=== PATIENT | female | born 1955 | race Caucasian/White ===

== ENCOUNTER 2016-09-03 15:28 | Inpatient (IN) | payer MEDICARE, MEDICAID ==
[~2016-09-03 15:28] MED LIST: ASPIR 8181 MG PO; AXERT6.25 MG; BACLOFEN20 MG PO; CALCIUM 600 W/V1 TAB PO; CYMBALTA60 MG PO; DETROL LA4 MG PO; HUMALOG100 U/ML SQ; INHALER; LANTUS100 U/ML SC; LEVOTHYROXINE125 MCG PO; MULTIVITAMIN1 TAB PO; NAPROXEN375 MG PO; NEURONTIN600 MG PO; NORVASC10 MG PO; PRILOSEC OTC20 MG PO; PROBIOTIC1 EACH PO; TRAMADOL HCL50 MG PO; VITAMIN C PO; XANAX0.25 MG
[2016-09-03] MEDS ORDERED: ACYCLOVIR SOD1000 MG IV (18:48)
[2016-09-03] MEDS ORDERED: ZOSYN IV (18:50)
[2016-09-03] MEDS ORDERED: VANCOMYCIN HCL500 MG IV (18:51)
[2016-09-03] MEDS ORDERED: ELIQUIS5 M1 GT (18:52)
[2016-09-03] MEDS ORDERED: ELIQUIS5 M1 PEG (18:55)
[2016-09-03] MEDS ORDERED: ASPIRIN325 M3 PEG (18:55)
[2016-09-03] MEDS ORDERED: LIPITOR80 M1 NG (18:56)
[2016-09-03] MEDS ORDERED: LIPITOR80 M1 PEG (18:56)
[2016-09-03] MEDS ORDERED: BACLOFEN20 M1 PEG (18:57)
[2016-09-03] MEDS ORDERED: NORVASC5 M2 PEG (18:58)
[2016-09-03] MEDS ORDERED: SENNA LAXATIVE PO (18:58)
[2016-09-03] MEDS ORDERED: MIRALAX17 G2 PEG (18:59)
[2016-09-03] MEDS ORDERED: OXYBUTYNIN CHLOR5 M2 PEG (19:02)
[2016-09-03] MEDS ORDERED: KEPPRA100 MG/1 M PEG (19:03)
[2016-09-03] MEDS ORDERED: TRICOR145 M2 PEG (19:03)
[2016-09-03] MEDS ORDERED: SYNTHROID88 MC1 PEG (19:05)
[2016-09-03] MEDS ORDERED: PRINIVIL20 M1 PO (19:05)
[2016-09-03] MEDS ORDERED: THERA-M1 EAC1 PEG (19:06)
[2016-09-03] MEDS ORDERED: VENLAFAXINE HCL75 M3 PEG (19:07)
[2016-09-03] MEDS ORDERED: BISCOLAX10 MG PR (19:08)
[2016-09-03] MEDS ORDERED: LEVEMIR FL100 UNIT/2 SC (19:12)
[2016-09-03] MEDS ORDERED: NOVOLOG FL100 UNIT/2 SC (19:12)
[2016-09-03] MEDS ORDERED: SANTYL30 G1 TOP (19:13)
[2016-09-03] MEDS ORDERED: CALAMINE TOP (19:14)
[2016-09-03] MEDS ORDERED: HYDRALAZINE HCL25 M1 PEG (19:15)
[2016-09-03] MEDS ORDERED: LABETALOL H5 MG/1 M1 IV (19:18)
[2016-09-03] MEDS ORDERED: ALBUTEROL2.5 MG/0.1 IH (19:19)
[2016-09-03] MEDS ORDERED: MILK OF MAGNESIA PEG (19:20)
[2016-09-03] MEDS ORDERED: MAPAP PEG (19:22)
[2016-09-03] MEDS ORDERED: MAALOX MAXIMUM355 M1 PEG (19:23)
[2016-09-03] MEDS ORDERED: OXYCODONE H5 MG/5 M2 PEG (19:24)
[2016-09-04 00:05] LABS: CREATININE 0.75 mg/dl (0.50-1.10); GLUCOSE 279 mg/dL (70-110); eGFR VALUE FOR BLACK >90 mL/Min
[2016-09-04 06:00] LABS: ALB/GLOB RATIO 0.8 (0.8-2.0); ALKALINE PHOSPHATASE 50 U/L (33-138); ALT/SGPT 19 U/L (12-78); ANION GAP 11 mmol/L (0-20); AST/SGOT 25 U/L (10-40); BLOOD UREA NITROGEN 25 mg/dl (6-24); CALCIUM 8.7 mg/dl (8.5-10.5); CARBON DIOXIDE-VENOUS 29 mmol/L (22-32); CHLORIDE 103 mmol/l (96-110); CREATININE 1.04 mg/dl (0.50-1.10); GLUCOSE 328 mg/dL (70-110); POTASSIUM 3.2 mmol/L (3.7-5.1); SODIUM 140 mmol/L (135-145); eGFR VALUE FOR BLACK 67 mL/Min
[2016-09-04 06:15] LABS: BASO % 0.1 % (0-2); EOS % 0.2 % (0-7); HCT-HEMATOCRIT 26.3 % (34.0-49.0); HGB-HEMOGLOBIN 8.6 gm/dl (12.0-15.5); IMMATURE GRANULOCYTES ABSOLUTE 0.04 tho/cmm (0-0.03); IMMATURE GRANULOCYTES PERCENT 0.4 % (0-0.3); LYMPH % 9.4 % (20-45); MCH (MEAN CORPUSCULAR HGB) 28.6 pg (28.0-32.0); MCHC MEAN CORPUSCULAR HGB CONC 32.7 % (32.0-36.0); MCV (MEAN CELL VOLUME) 87.4 fl (82.0-96.0); MEAN PLATELET VOLUME 10.9 cmc (9.4-12.4); MONO % 3.4 % (0-12); MONOCYTE ABSOLUTE COUNT 0.3 tho/cmm (0.0-1.2); NEUTROPHIL ABSOLUTE COUNT 8.8 tho/cmm (1.6-8.0); NEUTROPHIL-AUTOMATED 8.8 tho/cmm (1.6-8.0); NEUTROPHILS % 86.5 % (40-80); RED BLOOD COUNT 3.01 mil/cmm (4.00-5.20); WHITE BLOOD COUNT 10.1 tho/cmm (4.0-10.0)
[2016-09-04 09:26] LABS: PLATELET COUNT 120 tho/cmm (150-450)
[2016-09-04] MEDS ORDERED: ACETAMINOP160 MG/10 PO (15:50)
[2016-09-04] MEDS ORDERED: IPRAT-ALBUT 0.5-3 ML INH (15:52)
[2016-09-04] MEDS ORDERED: SENNA-S TABLET1 EAC3 PEG (15:58)
[2016-09-04] MEDS ORDERED: ADRENALIN1 MG/1 M3 ITR (15:59)
[2016-09-04] MEDS ORDERED: FLUOCINONIDE15 GM TP (16:01)
[2016-09-04] MEDS ORDERED: LIDOCAINE 2% ITR (16:08)
[2016-09-04] MEDS ORDERED: CALMOSEPTINE OI71 G1 TP (16:10)
[2016-09-04] MEDS ORDERED: NYSTATIN15 G1 TP (16:11)
[2016-09-05 05:49] LABS: BASO % 0.1 % (0-2); EOS % 2.1 % (0-7); EOSINOPHIL ABSOLUTE COUNT 0.1 tho/cmm (0.0-0.7); HCT-HEMATOCRIT 24.4 % (34.0-49.0); IMMATURE GRANULOCYTES ABSOLUTE 0.03 tho/cmm (0-0.03); IMMATURE GRANULOCYTES PERCENT 0.4 % (0-0.3); LYMPH % 9.1 % (20-45); LYMPH ABSOLUTE COUNT 0.6 tho/cmm (0.8-4.5); MCH (MEAN CORPUSCULAR HGB) 28.5 pg (28.0-32.0); MCHC MEAN CORPUSCULAR HGB CONC 32.8 % (32.0-36.0); MCV (MEAN CELL VOLUME) 86.8 fl (82.0-96.0); MEAN PLATELET VOLUME 10.4 cmc (9.4-12.4); MONOCYTE ABSOLUTE COUNT 0.3 tho/cmm (0.0-1.2); NEUTROPHIL ABSOLUTE COUNT 5.8 tho/cmm (1.6-8.0); NEUTROPHIL-AUTOMATED 5.8 tho/cmm (1.6-8.0); NEUTROPHILS % 84.3 % (40-80); RED BLOOD COUNT 2.81 mil/cmm (4.00-5.20); RED CELL DISTRIBUTION WIDTH 17.3 % (12.4-16.4); WHITE BLOOD COUNT 6.8 tho/cmm (4.0-10.0)
[2016-09-05 06:17] LABS: ALB/GLOB RATIO 0.9 (0.8-2.0); ALBUMIN 2.9 g/dl (3.5-5.0); ALKALINE PHOSPHATASE 67 U/L (33-138); ALT/SGPT 14 U/L (12-78); ANION GAP 10 mmol/L (0-20); AST/SGOT 20 U/L (10-40); BILIRUBIN,TOTAL 0.5 mg/dl (0-1.5); BLOOD UREA NITROGEN 35 mg/dl (6-24); CALCIUM 8.6 mg/dl (8.5-10.5); CARBON DIOXIDE-VENOUS 28 mmol/L (22-32); CHLORIDE 104 mmol/l (96-110); CREATININE 1.14 mg/dl (0.50-1.10); GLUCOSE 241 mg/dL (70-110); POTASSIUM 3.3 mmol/L (3.7-5.1); SODIUM 139 mmol/L (135-145); eGFR VALUE FOR BLACK 60 mL/Min
[2016-09-05 07:15] LABS: PLATELET COUNT 82 tho/cmm (150-450)
[2016-09-05 13:10] LABS: BASO % 0.1 % (0-2); EOS % 2.3 % (0-7); EOSINOPHIL ABSOLUTE COUNT 0.2 tho/cmm (0.0-0.7); HCT-HEMATOCRIT 25.7 % (34.0-49.0); HGB-HEMOGLOBIN 8.3 gm/dl (12.0-15.5); IMMATURE GRANULOCYTES ABSOLUTE 0.02 tho/cmm (0-0.03); IMMATURE GRANULOCYTES PERCENT 0.3 % (0-0.3); LYMPH % 12.2 % (20-45); LYMPH ABSOLUTE COUNT 0.9 tho/cmm (0.8-4.5); MCH (MEAN CORPUSCULAR HGB) 27.9 pg (28.0-32.0); MCHC MEAN CORPUSCULAR HGB CONC 32.3 % (32.0-36.0); MCV (MEAN CELL VOLUME) 86.2 fl (82.0-96.0); MEAN PLATELET VOLUME 10.3 cmc (9.4-12.4); MONO % 3.8 % (0-12); MONOCYTE ABSOLUTE COUNT 0.3 tho/cmm (0.0-1.2); NEUTROPHIL ABSOLUTE COUNT 6.1 tho/cmm (1.6-8.0); NEUTROPHIL-AUTOMATED 6.1 tho/cmm (1.6-8.0); NEUTROPHILS % 81.3 % (40-80); PLATELET COUNT 93 tho/cmm (150-450); RED BLOOD COUNT 2.98 mil/cmm (4.00-5.20); RED CELL DISTRIBUTION WIDTH 17.1 % (12.4-16.4); WHITE BLOOD COUNT 7.4 tho/cmm (4.0-10.0)
[2016-09-05 13:27] LABS: ANION GAP 13 mmol/L (0-20); BLOOD UREA NITROGEN 31 mg/dl (6-24); CALCIUM 8.8 mg/dl (8.5-10.5); CARBON DIOXIDE-VENOUS 28 mmol/L (22-32); CHLORIDE 104 mmol/l (96-110); CREATININE 1.04 mg/dl (0.50-1.10); GLUCOSE 264 mg/dL (70-110); POTASSIUM 3.7 mmol/L (3.7-5.1); SODIUM 141 mmol/L (135-145); eGFR VALUE FOR BLACK 67 mL/Min
[2016-09-05 17:32] LABS: PLATELET COUNT 95 tho/cmm (150-450)
[2016-09-06 04:27] LABS: ANION GAP 10 mmol/L (0-20); BLOOD UREA NITROGEN 25 mg/dl (6-24); CALCIUM 8.5 mg/dl (8.5-10.5); CARBON DIOXIDE-VENOUS 26 mmol/L (22-32); CHLORIDE 107 mmol/l (96-110); CREATININE 0.77 mg/dl (0.50-1.10); GLUCOSE 304 mg/dL (70-110); POTASSIUM 3.8 mmol/L (3.7-5.1); SODIUM 139 mmol/L (135-145); eGFR VALUE FOR BLACK >90 mL/Min
[2016-09-06 04:33] LABS: BASO % 0.1 % (0-2); EOS % 2.4 % (0-7); EOSINOPHIL ABSOLUTE COUNT 0.2 tho/cmm (0.0-0.7); HCT-HEMATOCRIT 28.7 % (34.0-49.0); HGB-HEMOGLOBIN 9.4 gm/dl (12.0-15.5); IMMATURE GRANULOCYTES ABSOLUTE 0.04 tho/cmm (0-0.03); IMMATURE GRANULOCYTES PERCENT 0.6 % (0-0.3); LYMPH % 8.2 % (20-45); LYMPH ABSOLUTE COUNT 0.6 tho/cmm (0.8-4.5); MCH (MEAN CORPUSCULAR HGB) 28.7 pg (28.0-32.0); MCHC MEAN CORPUSCULAR HGB CONC 32.8 % (32.0-36.0); MCV (MEAN CELL VOLUME) 87.8 fl (82.0-96.0); MONO % 3.3 % (0-12); MONOCYTE ABSOLUTE COUNT 0.2 tho/cmm (0.0-1.2); NEUTROPHIL ABSOLUTE COUNT 5.8 tho/cmm (1.6-8.0); NEUTROPHIL-AUTOMATED 5.8 tho/cmm (1.6-8.0); NEUTROPHILS % 85.4 % (40-80); PLATELET COUNT 102 tho/cmm (150-450); RED BLOOD COUNT 3.27 mil/cmm (4.00-5.20); RED CELL DISTRIBUTION WIDTH 16.4 % (12.4-16.4); WHITE BLOOD COUNT 6.7 tho/cmm (4.0-10.0)
[2016-09-06] MEDS ORDERED: SULFAMYLON SOL250 M1 TOP (09:38)
[2016-09-06] MEDS ORDERED: ACYCLOVIR SOD1000 MG IV (09:48)
[2016-09-06] MEDS ORDERED: LOVENOX40 MG/0.1 SC (09:50)
[2016-09-06] MEDS ORDERED: ACTIVASE50 MG IV (09:51)
[2016-09-06] MEDS ORDERED: HYDROCODON-ACE1 EA16 PEG (09:58)
[2016-09-06] MEDS ORDERED: [UNRECOGNIZED DRUG - OTHER] (10:45)
[2016-09-24] MEDS ORDERED: NOVOLOG FL100 UNIT/2 SC (12:13)
[2016-09-24] MEDS ORDERED: XANAX0.25 M1 PEG (12:16)
[2016-09-24] MEDS ORDERED: AMANTADINE100 MG PEG (12:16)
[2016-09-24] MEDS ORDERED: MEDS (14:47)
== END 2016-09-06 13:48 | DRG 981 ==
LOC: BURN 15:28 → ORW 17:30 → BURN 18:24
PROVIDERS: Family Medicine; Internal Medicine; Surgery; ADMIT Surgery
PROC: 0QB10ZZ Excision of Sacrum, Open Approach (ICD-10-PCS; principal; 2016-09-03)
PROC: 0QTS0ZZ Resection of Coccyx, Open Approach (ICD-10-PCS; principal; 2016-09-03)
PROC: 5A1945Z Respiratory Ventilation, 24-96 Consecutive Hours (ICD-10-PCS; principal; 2016-09-03)
PROC: 0QB10ZX Excision of Sacrum, Open Approach, Diagnostic (ICD-10-PCS; principal; 2016-09-03)
DX: L89.154 Pressure ulcer of sacral region, stage 4 (principal); J96.21 Acute and chronic respiratory failure with hypoxia; G93.49 Other encephalopathy; Z93.0 Tracheostomy status; G82.20 Paraplegia, unspecified; D69.6 Thrombocytopenia, unspecified; M46.28 Osteomyelitis of vertebra, sacral and sacrococcygeal region; I82.512 Chronic embolism and thrombosis of left femoral vein; N39.0 Urinary tract infection, site not specified; L02.219 Cutaneous abscess of trunk, unspecified; Q85.01 Neurofibromatosis, type 1; G40.909 Epilepsy, unspecified, not intractable, without status epilepticus; E11.9 Type 2 diabetes mellitus without complications; I10 Essential (primary) hypertension; B96.5 Pseudomonas (aeruginosa) (mallei) (pseudomallei) as the cause of diseases classified elsewhere; E66.9 Obesity, unspecified; F32.9 Major depressive disorder, single episode, unspecified; D64.9 Anemia, unspecified; E78.5 Hyperlipidemia, unspecified; F41.9 Anxiety disorder, unspecified; Z93.3 Colostomy status; Z88.8 Allergy status to other drugs, medicaments and biological substances; Z99.3 Dependence on wheelchair; Z93.1 Gastrostomy status; Z88.5 Allergy status to narcotic agent
CPT/HCPCS: J0133; J0360; J1650; J1815; J2543; J3010; J3370; J7050; J7999; P9016; P9045

== ENCOUNTER 2016-09-26 08:55 | Inpatient (IN) | payer MEDICARE, MEDICAID ==
[~2016-09-26 08:55] MED LIST changes: +ACETAMINOP160 MG/10 PO; +ACTIVASE50 MG IV; +ACYCLOVIR SOD1000 MG IV; +ADRENALIN1 MG/1 M3 ITR; +ALBUTEROL2.5 MG/0.1 IH; +AMANTADINE100 MG PEG; +ASPIRIN325 M3 PEG; +BACLOFEN20 M1 PEG; +BISCOLAX10 MG PR; +CALAMINE TOP; +CALMOSEPTINE OI71 G1 TP; +ELIQUIS5 M1 GT; +ELIQUIS5 M1 PEG; +FLUOCINONIDE15 GM TP; +HYDRALAZINE HCL25 M1 PEG; +HYDROCODON-ACE1 EA16 PEG; +IPRAT-ALBUT 0.5-3 ML INH; +KEPPRA100 MG/1 M PEG; +LABETALOL H5 MG/1 M1 IV; +LEVEMIR FL100 UNIT/2 SC; +LIDOCAINE 2% ITR; +LIPITOR80 M1 NG; +LIPITOR80 M1 PEG; +LOVENOX40 MG/0.1 SC; +MAALOX MAXIMUM355 M1 PEG; +MAPAP PEG; +MEDS; +MILK OF MAGNESIA PEG; +MIRALAX17 G2 PEG; +NORVASC5 M2 PEG; +NOVOLOG FL100 UNIT/2 SC; +NYSTATIN15 G1 TP; +OXYBUTYNIN CHLOR5 M2 PEG; +OXYCODONE H5 MG/5 M2 PEG; +PRINIVIL20 M1 PO; +SANTYL30 G1 TOP; +SENNA LAXATIVE PO; +SENNA-S TABLET1 EAC3 PEG; +SULFAMYLON SOL250 M1 TOP; +SYNTHROID88 MC1 PEG; +THERA-M1 EAC1 PEG; +TRICOR145 M2 PEG; +VANCOMYCIN HCL500 MG IV; +VENLAFAXINE HCL75 M3 PEG; +XANAX0.25 M1 PEG; +ZOSYN IV; +[UNRECOGNIZED DRUG - OTHER]
[2016-09-26 09:53] LABS: BASO % 0.3 % (0-2); EOSINOPHIL ABSOLUTE COUNT 0.3 tho/cmm (0.0-0.7); HCT-HEMATOCRIT 32.8 % (34.0-49.0); HGB-HEMOGLOBIN 10.8 gm/dl (12.0-15.5); IMMATURE GRANULOCYTES ABSOLUTE 0.13 tho/cmm (0-0.03); IMMATURE GRANULOCYTES PERCENT 1.4 % (0-0.3); LYMPH % 15.2 % (20-45); LYMPH ABSOLUTE COUNT 1.4 tho/cmm (0.8-4.5); MCH (MEAN CORPUSCULAR HGB) 29.8 pg (28.0-32.0); MCHC MEAN CORPUSCULAR HGB CONC 32.9 % (32.0-36.0); MCV (MEAN CELL VOLUME) 90.4 fl (82.0-96.0); MEAN PLATELET VOLUME 10.8 cmc (9.4-12.4); MONO % 7.8 % (0-12); MONOCYTE ABSOLUTE COUNT 0.7 tho/cmm (0.0-1.2); NEUTROPHIL ABSOLUTE COUNT 6.7 tho/cmm (1.6-8.0); NEUTROPHIL-AUTOMATED 6.7 tho/cmm (1.6-8.0); NEUTROPHILS % 72.3 % (40-80); PLATELET COUNT 313 tho/cmm (150-450); RED BLOOD COUNT 3.63 mil/cmm (4.00-5.20); RED CELL DISTRIBUTION WIDTH 18.7 % (12.4-16.4); WHITE BLOOD COUNT 9.3 tho/cmm (4.0-10.0)
[2016-09-26] MEDS ORDERED: NYSTATIN15 G1 TP (10:14)
[2016-09-27 07:11] LABS: BASO % 0.2 % (0-2); EOS % 2.8 % (0-7); EOSINOPHIL ABSOLUTE COUNT 0.2 tho/cmm (0.0-0.7); IMMATURE GRANULOCYTES ABSOLUTE 0.05 tho/cmm (0-0.03); IMMATURE GRANULOCYTES PERCENT 0.9 % (0-0.3); LYMPH % 13.1 % (20-45); LYMPH ABSOLUTE COUNT 0.7 tho/cmm (0.8-4.5); MCV (MEAN CELL VOLUME) 91.7 fl (82.0-96.0); MEAN PLATELET VOLUME 10.8 cmc (9.4-12.4); MONO % 4.9 % (0-12); MONOCYTE ABSOLUTE COUNT 0.3 tho/cmm (0.0-1.2); NEUTROPHIL ABSOLUTE COUNT 4.1 tho/cmm (1.6-8.0); NEUTROPHIL-AUTOMATED 4.1 tho/cmm (1.6-8.0); NEUTROPHILS % 78.1 % (40-80); PLATELET COUNT 216 tho/cmm (150-450); RED BLOOD COUNT 2.54 mil/cmm (4.00-5.20); RED CELL DISTRIBUTION WIDTH 18.8 % (12.4-16.4); WHITE BLOOD COUNT 5.3 tho/cmm (4.0-10.0)
[2016-09-27 07:14] LABS: HCT-HEMATOCRIT 23.3 % (34.0-49.0); HGB-HEMOGLOBIN 7.5 gm/dl (12.0-15.5); MCH (MEAN CORPUSCULAR HGB) 29.5 pg (28.0-32.0); MCHC MEAN CORPUSCULAR HGB CONC 32.2 % (32.0-36.0)
[2016-09-27 07:23] LABS: ALB/GLOB RATIO 0.7 (0.8-2.0); ALBUMIN 2.6 g/dl (3.5-5.0); ALKALINE PHOSPHATASE 59 U/L (33-138); ALT/SGPT 18 U/L (12-78); ANION GAP 16 mmol/L (0-20); AST/SGOT 21 U/L (10-40); BILIRUBIN,TOTAL 0.3 mg/dl (0-1.5); BLOOD UREA NITROGEN 71 mg/dl (6-24); CALCIUM 8.3 mg/dl (8.5-10.5); CARBON DIOXIDE-VENOUS 23 mmol/L (22-32); CHLORIDE 101 mmol/l (96-110); CREATININE 1.27 mg/dl (0.50-1.10); GLUCOSE 288 mg/dL (70-110); PHOSPHOROUS 3.1 mg/dl (2.5-4.9); POTASSIUM 4.8 mmol/L (3.7-5.1); SODIUM 135 mmol/L (135-145); eGFR VALUE FOR BLACK 53 mL/Min
[2016-09-27 08:29] LABS: URINE BILIRUBIN NEGATIVE (NEG); URINE BLOOD SMALL (NEG); URINE GLUCOSE (UA) LARGE (NEG); URINE KETONE NEGATIVE (NEG); URINE LEUKOCYTE ESTERASE POSITIVE (NEG); URINE NITRITE NEGATIVE (NEG); URINE PROTEIN MODERATE (NEG); URINE SPECIFIC GRAVITY 1.005 (1.003-1.030)
[2016-09-27 08:31] LABS: URINE APPEARANCE HAZY; URINE COLOR PALE YELLOW
[2016-09-27 09:04] LABS: URINE BACTERIA 2+; URINE EPITHELIAL CELLS 0-2 /[HPF] (0-10); URINE RBC 0-2 /[HPF] (0-5)
[2016-09-27 12:00] LABS: BASO % 0.4 % (0-2); EOS % 3.4 % (0-7); EOSINOPHIL ABSOLUTE COUNT 0.2 tho/cmm (0.0-0.7); IMMATURE GRANULOCYTES ABSOLUTE 0.04 tho/cmm (0-0.03); IMMATURE GRANULOCYTES PERCENT 0.7 % (0-0.3); LYMPH % 14.2 % (20-45); LYMPH ABSOLUTE COUNT 0.8 tho/cmm (0.8-4.5); MCV (MEAN CELL VOLUME) 91.6 fl (82.0-96.0); MEAN PLATELET VOLUME 10.7 cmc (9.4-12.4); MONO % 9.7 % (0-12); MONOCYTE ABSOLUTE COUNT 0.5 tho/cmm (0.0-1.2); NEUTROPHIL ABSOLUTE COUNT 3.8 tho/cmm (1.6-8.0); NEUTROPHIL-AUTOMATED 3.8 tho/cmm (1.6-8.0); NEUTROPHILS % 71.6 % (40-80); PLATELET COUNT 210 tho/cmm (150-450); RED BLOOD COUNT 3.22 mil/cmm (4.00-5.20); RED CELL DISTRIBUTION WIDTH 17.7 % (12.4-16.4); WHITE BLOOD COUNT 5.4 tho/cmm (4.0-10.0)
[2016-09-27 12:02] LABS: HCT-HEMATOCRIT 29.5 % (34.0-49.0); HGB-HEMOGLOBIN 9.6 gm/dl (12.0-15.5); MCH (MEAN CORPUSCULAR HGB) 29.8 pg (28.0-32.0); MCHC MEAN CORPUSCULAR HGB CONC 32.5 % (32.0-36.0)
[2016-09-27 12:34] LABS: ANION GAP 13 mmol/L (0-20); BLOOD UREA NITROGEN 70 mg/dl (6-24); CALCIUM 8.9 mg/dl (8.5-10.5); CARBON DIOXIDE-VENOUS 28 mmol/L (22-32); CHLORIDE 101 mmol/l (96-110); GLUCOSE 246 mg/dL (70-110); POTASSIUM 4.7 mmol/L (3.7-5.1); SODIUM 137 mmol/L (135-145); eGFR VALUE FOR BLACK 51 mL/Min
[2016-09-28 10:14] LABS: BASO % 0.3 % (0-2); EOSINOPHIL ABSOLUTE COUNT 0.3 tho/cmm (0.0-0.7); HGB-HEMOGLOBIN 9.9 gm/dl (12.0-15.5); IMMATURE GRANULOCYTES ABSOLUTE 0.02 tho/cmm (0-0.03); IMMATURE GRANULOCYTES PERCENT 0.3 % (0-0.3); LYMPH % 11.2 % (20-45); LYMPH ABSOLUTE COUNT 0.7 tho/cmm (0.8-4.5); MCH (MEAN CORPUSCULAR HGB) 29.9 pg (28.0-32.0); MCV (MEAN CELL VOLUME) 90.6 fl (82.0-96.0); MEAN PLATELET VOLUME 10.6 cmc (9.4-12.4); MONO % 7.5 % (0-12); MONOCYTE ABSOLUTE COUNT 0.5 tho/cmm (0.0-1.2); NEUTROPHIL ABSOLUTE COUNT 4.8 tho/cmm (1.6-8.0); NEUTROPHIL-AUTOMATED 4.8 tho/cmm (1.6-8.0); NEUTROPHILS % 76.7 % (40-80); PLATELET COUNT 229 tho/cmm (150-450); RED BLOOD COUNT 3.31 mil/cmm (4.00-5.20); RED CELL DISTRIBUTION WIDTH 17.1 % (12.4-16.4); WHITE BLOOD COUNT 6.3 tho/cmm (4.0-10.0)
[2016-09-28 10:21] LABS: PROTHROMBIN TIME 11.4 SECONDS (9.0-13.6)
[2016-09-28 10:33] LABS: ALB/GLOB RATIO 0.7 (0.8-2.0); ALKALINE PHOSPHATASE 84 U/L (33-138); ALT/SGPT 23 U/L (12-78); ANION GAP 12 mmol/L (0-20); AST/SGOT 20 U/L (10-40); BILIRUBIN,TOTAL 0.3 mg/dl (0-1.5); BLOOD UREA NITROGEN 43 mg/dl (6-24); C-REACTIVE PROTEIN 2.7 mg/dl (0-0.9); CALCIUM 9.3 mg/dl (8.5-10.5); CARBON DIOXIDE-VENOUS 27 mmol/L (22-32); CHLORIDE 103 mmol/l (96-110); CREATININE 1.09 mg/dl (0.50-1.10); GLUCOSE 250 mg/dL (70-110); POTASSIUM 4.4 mmol/L (3.7-5.1); SODIUM 138 mmol/L (135-145); eGFR VALUE FOR BLACK 63 mL/Min
[2016-09-29 04:58] LABS: BASO % 0.3 % (0-2); EOS % 2.8 % (0-7); EOSINOPHIL ABSOLUTE COUNT 0.2 tho/cmm (0.0-0.7); HCT-HEMATOCRIT 32.9 % (34.0-49.0); HGB-HEMOGLOBIN 10.8 gm/dl (12.0-15.5); IMMATURE GRANULOCYTES ABSOLUTE 0.08 tho/cmm (0-0.03); LYMPH % 12.3 % (20-45); MCH (MEAN CORPUSCULAR HGB) 29.6 pg (28.0-32.0); MCHC MEAN CORPUSCULAR HGB CONC 32.8 % (32.0-36.0); MCV (MEAN CELL VOLUME) 90.1 fl (82.0-96.0); MONO % 5.6 % (0-12); MONOCYTE ABSOLUTE COUNT 0.4 tho/cmm (0.0-1.2); NEUTROPHIL ABSOLUTE COUNT 6.2 tho/cmm (1.6-8.0); NEUTROPHIL-AUTOMATED 6.2 tho/cmm (1.6-8.0); PLATELET COUNT 277 tho/cmm (150-450); RED BLOOD COUNT 3.65 mil/cmm (4.00-5.20); RED CELL DISTRIBUTION WIDTH 16.9 % (12.4-16.4); WHITE BLOOD COUNT 7.9 tho/cmm (4.0-10.0)
[2016-09-29 08:30] LABS: URINE BILIRUBIN NEGATIVE (NEG); URINE BLOOD NEGATIVE (NEG); URINE GLUCOSE (UA) LARGE (NEG); URINE KETONE NEGATIVE (NEG); URINE LEUKOCYTE ESTERASE POSITIVE (NEG); URINE NITRITE NEGATIVE (NEG); URINE PROTEIN MODERATE (NEG); URINE SPECIFIC GRAVITY 1.005 (1.003-1.030)
[2016-09-29 08:31] LABS: URINE APPEARANCE CLEAR; URINE COLOR YELLOW
[2016-09-29 08:39] LABS: URINE EPITHELIAL CELLS 0 /[HPF] (0-10); URINE RBC 0 /[HPF] (0-5)
[2016-09-29 09:05] LABS: PROCALCITONIN 0.23 ng/ml (0.05-0.09)
[2016-09-29 10:38] LABS: PH 7.42 Units (7.35-7.45)
[2016-09-29 10:39] LABS: ABG CO2 ARTERIAL 25 mmol/L (21-27); ARTERIAL BLD GAS O2 SATURATION 96 % (95-98); ARTERIAL BLOOD GAS PCO2 37 mmHg (32-45); ARTERIAL PO2 72 mmHg (70-100); BICARBONATE 24 mmol/L (21-28); BLOOD GAS BASE EXCESS 0 mM/L (-/+3)
[2016-09-29 14:04] LABS: ANION GAP 18 mmol/L (0-20); BLOOD UREA NITROGEN 30 mg/dl (6-24); CARBON DIOXIDE-VENOUS 21 mmol/L (22-32); CHLORIDE 100 mmol/l (96-110); CREATININE 0.83 mg/dl (0.50-1.10); GLUCOSE 181 mg/dL (70-110); POTASSIUM 4.5 mmol/L (3.7-5.1); SODIUM 134 mmol/L (135-145); eGFR VALUE FOR BLACK 88 mL/Min
[2016-09-30 06:15] LABS: BASO % 0.2 % (0-2); EOS % 1.7 % (0-7); EOSINOPHIL ABSOLUTE COUNT 0.1 tho/cmm (0.0-0.7); HCT-HEMATOCRIT 29.1 % (34.0-49.0); HGB-HEMOGLOBIN 9.6 gm/dl (12.0-15.5); IMMATURE GRANULOCYTES PERCENT 1.2 % (0-0.3); LYMPH % 13.5 % (20-45); LYMPH ABSOLUTE COUNT 1.1 tho/cmm (0.8-4.5); MCH (MEAN CORPUSCULAR HGB) 29.7 pg (28.0-32.0); MCV (MEAN CELL VOLUME) 90.1 fl (82.0-96.0); MEAN PLATELET VOLUME 10.9 cmc (9.4-12.4); MONO % 10.4 % (0-12); MONOCYTE ABSOLUTE COUNT 0.9 tho/cmm (0.0-1.2); PLATELET COUNT 274 tho/cmm (150-450); RED BLOOD COUNT 3.23 mil/cmm (4.00-5.20); RED CELL DISTRIBUTION WIDTH 17.1 % (12.4-16.4); WHITE BLOOD COUNT 8.3 tho/cmm (4.0-10.0)
[2016-09-30 06:21] LABS: ANION GAP 15 mmol/L (0-20); BLOOD UREA NITROGEN 37 mg/dl (6-24); CALCIUM 8.9 mg/dl (8.5-10.5); CARBON DIOXIDE-VENOUS 24 mmol/L (22-32); CHLORIDE 98 mmol/l (96-110); CREATININE 1.09 mg/dl (0.50-1.10); POTASSIUM 4.2 mmol/L (3.7-5.1); SODIUM 133 mmol/L (135-145); eGFR VALUE FOR BLACK 63 mL/Min
[2016-09-30 06:24] LABS: C-REACTIVE PROTEIN 1.3 mg/dl (0-0.9); GLUCOSE 305 mg/dL (70-110)
[2016-10-01 05:22] LABS: BASO % 0.2 % (0-2); EOS % 1.4 % (0-7); EOSINOPHIL ABSOLUTE COUNT 0.1 tho/cmm (0.0-0.7); HCT-HEMATOCRIT 28.9 % (34.0-49.0); HGB-HEMOGLOBIN 9.4 gm/dl (12.0-15.5); IMMATURE GRANULOCYTES ABSOLUTE 0.07 tho/cmm (0-0.03); IMMATURE GRANULOCYTES PERCENT 0.8 % (0-0.3); LYMPH ABSOLUTE COUNT 1.3 tho/cmm (0.8-4.5); MCH (MEAN CORPUSCULAR HGB) 29.4 pg (28.0-32.0); MCHC MEAN CORPUSCULAR HGB CONC 32.5 % (32.0-36.0); MCV (MEAN CELL VOLUME) 90.3 fl (82.0-96.0); MEAN PLATELET VOLUME 10.8 cmc (9.4-12.4); MONO % 6.9 % (0-12); MONOCYTE ABSOLUTE COUNT 0.6 tho/cmm (0.0-1.2); NEUTROPHIL ABSOLUTE COUNT 6.5 tho/cmm (1.6-8.0); NEUTROPHIL-AUTOMATED 6.5 tho/cmm (1.6-8.0); NEUTROPHILS % 75.7 % (40-80); PLATELET COUNT 286 tho/cmm (150-450); RED CELL DISTRIBUTION WIDTH 17.3 % (12.4-16.4); WHITE BLOOD COUNT 8.5 tho/cmm (4.0-10.0)
[2016-10-01 05:36] LABS: ANION GAP 18 mmol/L (0-20); BLOOD UREA NITROGEN 46 mg/dl (6-24); CALCIUM 9.3 mg/dl (8.5-10.5); CARBON DIOXIDE-VENOUS 25 mmol/L (22-32); CHLORIDE 97 mmol/l (96-110); CREATININE 1.32 mg/dl (0.50-1.10); GLUCOSE 219 mg/dL (70-110); POTASSIUM 4.3 mmol/L (3.7-5.1); SODIUM 136 mmol/L (135-145); eGFR VALUE FOR BLACK 50 mL/Min
[2016-10-02 05:36] LABS: BASO % 0.5 % (0-2); EOS % 4.1 % (0-7); EOSINOPHIL ABSOLUTE COUNT 0.3 tho/cmm (0.0-0.7); HGB-HEMOGLOBIN 8.7 gm/dl (12.0-15.5); LYMPH % 11.6 % (20-45); LYMPH ABSOLUTE COUNT 0.9 tho/cmm (0.8-4.5); MCH (MEAN CORPUSCULAR HGB) 29.6 pg (28.0-32.0); MCHC MEAN CORPUSCULAR HGB CONC 32.2 % (32.0-36.0); MCV (MEAN CELL VOLUME) 91.8 fl (82.0-96.0); MEAN PLATELET VOLUME 10.8 cmc (9.4-12.4); MONO % 7.9 % (0-12); MONOCYTE ABSOLUTE COUNT 0.6 tho/cmm (0.0-1.2); NEUTROPHIL ABSOLUTE COUNT 5.8 tho/cmm (1.6-8.0); NEUTROPHIL-AUTOMATED 5.8 tho/cmm (1.6-8.0); NEUTROPHILS % 75.9 % (40-80); PLATELET COUNT 277 tho/cmm (150-450); RED BLOOD COUNT 2.94 mil/cmm (4.00-5.20); RED CELL DISTRIBUTION WIDTH 16.9 % (12.4-16.4); WHITE BLOOD COUNT 7.6 tho/cmm (4.0-10.0)
[2016-10-02 05:48] LABS: ALBUMIN 2.7 g/dl (3.5-5.0); ANION GAP 14 mmol/L (0-20); BLOOD UREA NITROGEN 36 mg/dl (6-24); C-REACTIVE PROTEIN 0.4 mg/dl (0-0.9); CARBON DIOXIDE-VENOUS 27 mmol/L (22-32); CHLORIDE 101 mmol/l (96-110); CREATININE 0.93 mg/dl (0.50-1.10); GLUCOSE 116 mg/dL (70-110); POTASSIUM 3.8 mmol/L (3.7-5.1); SODIUM 138 mmol/L (135-145); eGFR VALUE FOR BLACK 77 mL/Min
[2016-10-02 06:01] LABS: PREALBUMIN 29.7 mg/dl (20.0-40.0)
[2016-10-02 06:06] LABS: PROCALCITONIN 0.17 ng/ml (0.05-0.09)
[2016-10-03 04:06] LABS: BASO % 0.3 % (0-2); EOS % 4.2 % (0-7); EOSINOPHIL ABSOLUTE COUNT 0.3 tho/cmm (0.0-0.7); HCT-HEMATOCRIT 27.1 % (34.0-49.0); HGB-HEMOGLOBIN 8.9 gm/dl (12.0-15.5); IMMATURE GRANULOCYTES ABSOLUTE 0.03 tho/cmm (0-0.03); IMMATURE GRANULOCYTES PERCENT 0.5 % (0-0.3); LYMPH % 14.8 % (20-45); MCH (MEAN CORPUSCULAR HGB) 29.6 pg (28.0-32.0); MCHC MEAN CORPUSCULAR HGB CONC 32.8 % (32.0-36.0); MEAN PLATELET VOLUME 9.8 cmc (9.4-12.4); MONO % 5.9 % (0-12); MONOCYTE ABSOLUTE COUNT 0.4 tho/cmm (0.0-1.2); NEUTROPHIL ABSOLUTE COUNT 4.8 tho/cmm (1.6-8.0); NEUTROPHIL-AUTOMATED 4.8 tho/cmm (1.6-8.0); NEUTROPHILS % 74.3 % (40-80); PLATELET COUNT 284 tho/cmm (150-450); RED BLOOD COUNT 3.01 mil/cmm (4.00-5.20); RED CELL DISTRIBUTION WIDTH 17.2 % (12.4-16.4); WHITE BLOOD COUNT 6.4 tho/cmm (4.0-10.0)
[2016-10-03 04:15] LABS: ANION GAP 13 mmol/L (0-20); BLOOD UREA NITROGEN 29 mg/dl (6-24); CARBON DIOXIDE-VENOUS 28 mmol/L (22-32); CHLORIDE 101 mmol/l (96-110); CREATININE 0.75 mg/dl (0.50-1.10); GLUCOSE 110 mg/dL (70-110); POTASSIUM 3.7 mmol/L (3.7-5.1); SODIUM 138 mmol/L (135-145); eGFR VALUE FOR BLACK >90 mL/Min
[2016-10-04 05:15] LABS: BASO % 0.5 % (0-2); EOS % 2.7 % (0-7); EOSINOPHIL ABSOLUTE COUNT 0.2 tho/cmm (0.0-0.7); HGB-HEMOGLOBIN 9.1 gm/dl (12.0-15.5); IMMATURE GRANULOCYTES ABSOLUTE 0.04 tho/cmm (0-0.03); IMMATURE GRANULOCYTES PERCENT 0.6 % (0-0.3); LYMPH % 16.8 % (20-45); LYMPH ABSOLUTE COUNT 1.1 tho/cmm (0.8-4.5); MCH (MEAN CORPUSCULAR HGB) 29.5 pg (28.0-32.0); MCHC MEAN CORPUSCULAR HGB CONC 32.5 % (32.0-36.0); MCV (MEAN CELL VOLUME) 90.9 fl (82.0-96.0); MEAN PLATELET VOLUME 9.8 cmc (9.4-12.4); MONO % 5.9 % (0-12); MONOCYTE ABSOLUTE COUNT 0.4 tho/cmm (0.0-1.2); NEUTROPHIL ABSOLUTE COUNT 4.9 tho/cmm (1.6-8.0); NEUTROPHIL-AUTOMATED 4.9 tho/cmm (1.6-8.0); NEUTROPHILS % 73.5 % (40-80); PLATELET COUNT 351 tho/cmm (150-450); RED BLOOD COUNT 3.08 mil/cmm (4.00-5.20); WHITE BLOOD COUNT 6.7 tho/cmm (4.0-10.0)
[2016-10-04 05:26] LABS: ANION GAP 13 mmol/L (0-20); BLOOD UREA NITROGEN 21 mg/dl (6-24); CALCIUM 9.6 mg/dl (8.5-10.5); CARBON DIOXIDE-VENOUS 28 mmol/L (22-32); CHLORIDE 99 mmol/l (96-110); GLUCOSE 96 mg/dL (70-110); POTASSIUM 3.9 mmol/L (3.7-5.1); SODIUM 136 mmol/L (135-145); eGFR VALUE FOR BLACK >90 mL/Min
[2016-10-05 05:27] LABS: BASO % 0.3 % (0-2); EOSINOPHIL ABSOLUTE COUNT 0.2 tho/cmm (0.0-0.7); HGB-HEMOGLOBIN 7.9 gm/dl (12.0-15.5); IMMATURE GRANULOCYTES ABSOLUTE 0.02 tho/cmm (0-0.03); IMMATURE GRANULOCYTES PERCENT 0.3 % (0-0.3); LYMPH % 9.6 % (20-45); LYMPH ABSOLUTE COUNT 0.8 tho/cmm (0.8-4.5); MCH (MEAN CORPUSCULAR HGB) 29.8 pg (28.0-32.0); MCHC MEAN CORPUSCULAR HGB CONC 32.9 % (32.0-36.0); MCV (MEAN CELL VOLUME) 90.6 fl (82.0-96.0); MEAN PLATELET VOLUME 9.4 cmc (9.4-12.4); MONO % 5.6 % (0-12); MONOCYTE ABSOLUTE COUNT 0.4 tho/cmm (0.0-1.2); NEUTROPHIL ABSOLUTE COUNT 6.4 tho/cmm (1.6-8.0); NEUTROPHIL-AUTOMATED 6.4 tho/cmm (1.6-8.0); NEUTROPHILS % 82.2 % (40-80); PLATELET COUNT 313 tho/cmm (150-450); RED BLOOD COUNT 2.65 mil/cmm (4.00-5.20); RED CELL DISTRIBUTION WIDTH 17.3 % (12.4-16.4); WHITE BLOOD COUNT 7.8 tho/cmm (4.0-10.0)
[2016-10-05 05:39] LABS: ANION GAP 15 mmol/L (0-20); BLOOD UREA NITROGEN 30 mg/dl (6-24); CALCIUM 9.4 mg/dl (8.5-10.5); CARBON DIOXIDE-VENOUS 25 mmol/L (22-32); CHLORIDE 99 mmol/l (96-110); POTASSIUM 3.6 mmol/L (3.7-5.1); SODIUM 135 mmol/L (135-145); eGFR VALUE FOR BLACK 52 mL/Min
[2016-10-05 05:44] LABS: CREATININE 1.28 mg/dl (0.50-1.10); GLUCOSE 205 mg/dL (70-110)
[2016-10-06 05:38] LABS: BASO % 0.1 % (0-2); EOS % 1.7 % (0-7); EOSINOPHIL ABSOLUTE COUNT 0.1 tho/cmm (0.0-0.7); HCT-HEMATOCRIT 25.2 % (34.0-49.0); HGB-HEMOGLOBIN 8.3 gm/dl (12.0-15.5); IMMATURE GRANULOCYTES ABSOLUTE 0.02 tho/cmm (0-0.03); IMMATURE GRANULOCYTES PERCENT 0.2 % (0-0.3); LYMPH % 8.5 % (20-45); LYMPH ABSOLUTE COUNT 0.7 tho/cmm (0.8-4.5); MCH (MEAN CORPUSCULAR HGB) 29.9 pg (28.0-32.0); MCHC MEAN CORPUSCULAR HGB CONC 32.9 % (32.0-36.0); MCV (MEAN CELL VOLUME) 90.6 fl (82.0-96.0); MEAN PLATELET VOLUME 10.2 cmc (9.4-12.4); MONO % 9.1 % (0-12); MONOCYTE ABSOLUTE COUNT 0.8 tho/cmm (0.0-1.2); NEUTROPHIL ABSOLUTE COUNT 6.8 tho/cmm (1.6-8.0); NEUTROPHIL-AUTOMATED 6.8 tho/cmm (1.6-8.0); NEUTROPHILS % 80.4 % (40-80); PLATELET COUNT 311 tho/cmm (150-450); RED BLOOD COUNT 2.78 mil/cmm (4.00-5.20); WHITE BLOOD COUNT 8.4 tho/cmm (4.0-10.0)
[2016-10-06 05:49] LABS: ANION GAP 16 mmol/L (0-20); BLOOD UREA NITROGEN 41 mg/dl (6-24); CALCIUM 9.4 mg/dl (8.5-10.5); CARBON DIOXIDE-VENOUS 25 mmol/L (22-32); CHLORIDE 100 mmol/l (96-110); CREATININE 1.16 mg/dl (0.50-1.10); GLUCOSE 176 mg/dL (70-110); POTASSIUM 3.5 mmol/L (3.7-5.1); SODIUM 137 mmol/L (135-145); eGFR VALUE FOR BLACK 59 mL/Min
[2016-10-07 04:32] LABS: HGB-HEMOGLOBIN 8.5 gm/dl (12.0-15.5); PLATELET COUNT 325 tho/cmm (150-450)
[2016-10-08 05:45] LABS: BASO % 0.1 % (0-2); EOS % 3.3 % (0-7); EOSINOPHIL ABSOLUTE COUNT 0.3 tho/cmm (0.0-0.7); HCT-HEMATOCRIT 25.8 % (34.0-49.0); HGB-HEMOGLOBIN 8.4 gm/dl (12.0-15.5); IMMATURE GRANULOCYTES ABSOLUTE 0.05 tho/cmm (0-0.03); IMMATURE GRANULOCYTES PERCENT 0.6 % (0-0.3); LYMPH % 10.7 % (20-45); LYMPH ABSOLUTE COUNT 0.9 tho/cmm (0.8-4.5); MCH (MEAN CORPUSCULAR HGB) 30.1 pg (28.0-32.0); MCHC MEAN CORPUSCULAR HGB CONC 32.6 % (32.0-36.0); MCV (MEAN CELL VOLUME) 92.5 fl (82.0-96.0); MONOCYTE ABSOLUTE COUNT 0.8 tho/cmm (0.0-1.2); NEUTROPHIL ABSOLUTE COUNT 6.2 tho/cmm (1.6-8.0); NEUTROPHIL-AUTOMATED 6.2 tho/cmm (1.6-8.0); NEUTROPHILS % 75.3 % (40-80); PLATELET COUNT 375 tho/cmm (150-450); RED BLOOD COUNT 2.79 mil/cmm (4.00-5.20); RED CELL DISTRIBUTION WIDTH 17.5 % (12.4-16.4); WHITE BLOOD COUNT 8.2 tho/cmm (4.0-10.0)
[2016-10-08 06:06] LABS: ALB/GLOB RATIO 0.6 (0.8-2.0); ALKALINE PHOSPHATASE 58 U/L (33-138); ALT/SGPT 22 U/L (12-78); ANION GAP 16 mmol/L (0-20); AST/SGOT 22 U/L (10-40); BILIRUBIN,TOTAL 0.3 mg/dl (0-1.5); BLOOD UREA NITROGEN 30 mg/dl (6-24); C-REACTIVE PROTEIN 14.5 mg/dl (0-0.9); CALCIUM 9.8 mg/dl (8.5-10.5); CARBON DIOXIDE-VENOUS 25 mmol/L (22-32); CHLORIDE 100 mmol/l (96-110); CREATININE 0.78 mg/dl (0.50-1.10); GLUCOSE 163 mg/dL (70-110); POTASSIUM 3.9 mmol/L (3.7-5.1); PREALBUMIN 18.5 mg/dl (20.0-40.0); SODIUM 137 mmol/L (135-145); eGFR VALUE FOR BLACK >90 mL/Min
[2016-10-09 06:11] LABS: HGB-HEMOGLOBIN 8.8 gm/dl (12.0-15.5); PLATELET COUNT 385 tho/cmm (150-450)
[2016-10-09 12:28] LABS: BASO % 0.6 % (0-2); EOS % 3.9 % (0-7); EOSINOPHIL ABSOLUTE COUNT 0.3 tho/cmm (0.0-0.7); HCT-HEMATOCRIT 26.4 % (34.0-49.0); HGB-HEMOGLOBIN 8.6 gm/dl (12.0-15.5); IMMATURE GRANULOCYTES ABSOLUTE 0.09 tho/cmm (0-0.03); IMMATURE GRANULOCYTES PERCENT 1.3 % (0-0.3); LYMPH % 15.5 % (20-45); LYMPH ABSOLUTE COUNT 1.1 tho/cmm (0.8-4.5); MCH (MEAN CORPUSCULAR HGB) 30.1 pg (28.0-32.0); MCHC MEAN CORPUSCULAR HGB CONC 32.6 % (32.0-36.0); MCV (MEAN CELL VOLUME) 92.3 fl (82.0-96.0); MONOCYTE ABSOLUTE COUNT 0.9 tho/cmm (0.0-1.2); NEUTROPHIL ABSOLUTE COUNT 4.7 tho/cmm (1.6-8.0); NEUTROPHIL-AUTOMATED 4.7 tho/cmm (1.6-8.0); NEUTROPHILS % 65.7 % (40-80); PLATELET COUNT 449 tho/cmm (150-450); RED BLOOD COUNT 2.86 mil/cmm (4.00-5.20); RED CELL DISTRIBUTION WIDTH 17.3 % (12.4-16.4); WHITE BLOOD COUNT 7.1 tho/cmm (4.0-10.0)
[2016-10-09 12:45] LABS: ALB/GLOB RATIO 0.6 (0.8-2.0); ALBUMIN 2.9 g/dl (3.5-5.0); ALKALINE PHOSPHATASE 50 U/L (33-138); ANION GAP 15 mmol/L (0-20); AST/SGOT 24 U/L (10-40); BILIRUBIN,TOTAL 0.3 mg/dl (0-1.5); BLOOD UREA NITROGEN 32 mg/dl (6-24); CALCIUM 10.1 mg/dl (8.5-10.5); CARBON DIOXIDE-VENOUS 26 mmol/L (22-32); CHLORIDE 102 mmol/l (96-110); CREATININE 0.82 mg/dl (0.50-1.10); GLUCOSE 105 mg/dL (70-110); POTASSIUM 4.1 mmol/L (3.7-5.1); SODIUM 139 mmol/L (135-145); eGFR VALUE FOR BLACK 90 mL/Min
[2016-10-09 12:51] LABS: ALT/SGPT 22 U/L (12-78)
[2016-10-10 04:51] LABS: BASO % 0.3 % (0-2); EOS % 2.8 % (0-7); EOSINOPHIL ABSOLUTE COUNT 0.2 tho/cmm (0.0-0.7); HGB-HEMOGLOBIN 7.3 gm/dl (12.0-15.5); IMMATURE GRANULOCYTES ABSOLUTE 0.16 tho/cmm (0-0.03); LYMPH % 14.8 % (20-45); LYMPH ABSOLUTE COUNT 1.2 tho/cmm (0.8-4.5); MCH (MEAN CORPUSCULAR HGB) 30.2 pg (28.0-32.0); MCV (MEAN CELL VOLUME) 93.8 fl (82.0-96.0); MEAN PLATELET VOLUME 9.5 cmc (9.4-12.4); MONO % 12.1 % (0-12); NEUTROPHIL ABSOLUTE COUNT 5.4 tho/cmm (1.6-8.0); NEUTROPHIL-AUTOMATED 5.4 tho/cmm (1.6-8.0); PLATELET COUNT 343 tho/cmm (150-450); RED BLOOD COUNT 2.42 mil/cmm (4.00-5.20); RED CELL DISTRIBUTION WIDTH 17.5 % (12.4-16.4)
[2016-10-10 05:11] LABS: HCT-HEMATOCRIT 22.7 % (34.0-49.0); MCHC MEAN CORPUSCULAR HGB CONC 32.2 % (32.0-36.0)
[2016-10-10 05:16] LABS: ALB/GLOB RATIO 0.8 (0.8-2.0); ALBUMIN 3.3 g/dl (3.5-5.0); ALKALINE PHOSPHATASE 48 U/L (33-138); ALT/SGPT 17 U/L (12-78); ANION GAP 14 mmol/L (0-20); AST/SGOT 17 U/L (10-40); BILIRUBIN,TOTAL 0.4 mg/dl (0-1.5); BLOOD UREA NITROGEN 35 mg/dl (6-24); CALCIUM 9.6 mg/dl (8.5-10.5); CARBON DIOXIDE-VENOUS 25 mmol/L (22-32); CHLORIDE 105 mmol/l (96-110); CREATININE 0.78 mg/dl (0.50-1.10); POTASSIUM 3.6 mmol/L (3.7-5.1); SODIUM 140 mmol/L (135-145); eGFR VALUE FOR BLACK >90 mL/Min
[2016-10-10 05:25] LABS: GLUCOSE 159 mg/dL (70-110)
[2016-10-10 18:37] LABS: URINE BILIRUBIN NEGATIVE (NEG); URINE BLOOD SMALL (NEG); URINE GLUCOSE (UA) MODERATE (NEG); URINE KETONE NEGATIVE (NEG); URINE LEUKOCYTE ESTERASE POSITIVE (NEG); URINE NITRITE NEGATIVE (NEG); URINE PROTEIN MODERATE (NEG)
[2016-10-10 18:38] LABS: URINE APPEARANCE CLEAR; URINE COLOR PALE YELLOW
[2016-10-10 18:46] LABS: URINE BACTERIA 1+; URINE EPITHELIAL CELLS 15-20 /[HPF] (0-10); URINE MUCUS 1+; URINE RBC 0-3 /[HPF] (0-5)
[2016-10-11 06:08] LABS: BASO % 0.5 % (0-2); EOSINOPHIL ABSOLUTE COUNT 0.2 tho/cmm (0.0-0.7); HGB-HEMOGLOBIN 8.3 gm/dl (12.0-15.5); IMMATURE GRANULOCYTES PERCENT 2.6 % (0-0.3); LYMPH % 9.9 % (20-45); LYMPH ABSOLUTE COUNT 0.8 tho/cmm (0.8-4.5); MCH (MEAN CORPUSCULAR HGB) 30.3 pg (28.0-32.0); MCHC MEAN CORPUSCULAR HGB CONC 33.2 % (32.0-36.0); MCV (MEAN CELL VOLUME) 91.2 fl (82.0-96.0); MEAN PLATELET VOLUME 9.7 cmc (9.4-12.4); MONO % 9.6 % (0-12); MONOCYTE ABSOLUTE COUNT 0.7 tho/cmm (0.0-1.2); NEUTROPHIL ABSOLUTE COUNT 5.7 tho/cmm (1.6-8.0); NEUTROPHIL-AUTOMATED 5.7 tho/cmm (1.6-8.0); NEUTROPHILS % 74.4 % (40-80); PLATELET COUNT 308 tho/cmm (150-450); RED BLOOD COUNT 2.74 mil/cmm (4.00-5.20); RED CELL DISTRIBUTION WIDTH 17.2 % (12.4-16.4); WHITE BLOOD COUNT 7.7 tho/cmm (4.0-10.0)
[2016-10-12 07:10] LABS: TSH-THYROID STIMULATING HORM. 5.24 uIU/ml (0.40-3.80)
[2016-10-13 04:00] LABS: HGB-HEMOGLOBIN 8.4 gm/dl (12.0-15.5); PLATELET COUNT 311 tho/cmm (150-450)
[2016-10-13 04:24] LABS: CREATININE 0.51 mg/dl (0.50-1.10); eGFR VALUE FOR BLACK >90 mL/Min
[2016-10-14 09:30] LABS: BASO % 0.3 % (0-2); EOS % 1.7 % (0-7); EOSINOPHIL ABSOLUTE COUNT 0.1 tho/cmm (0.0-0.7); HCT-HEMATOCRIT 25.9 % (34.0-49.0); HGB-HEMOGLOBIN 8.7 gm/dl (12.0-15.5); IMMATURE GRANULOCYTES ABSOLUTE 0.07 tho/cmm (0-0.03); IMMATURE GRANULOCYTES PERCENT 0.9 % (0-0.3); LYMPH % 13.4 % (20-45); MCH (MEAN CORPUSCULAR HGB) 30.6 pg (28.0-32.0); MCHC MEAN CORPUSCULAR HGB CONC 33.6 % (32.0-36.0); MCV (MEAN CELL VOLUME) 91.2 fl (82.0-96.0); MEAN PLATELET VOLUME 9.1 cmc (9.4-12.4); MONO % 8.3 % (0-12); MONOCYTE ABSOLUTE COUNT 0.6 tho/cmm (0.0-1.2); NEUTROPHIL ABSOLUTE COUNT 5.6 tho/cmm (1.6-8.0); NEUTROPHIL-AUTOMATED 5.6 tho/cmm (1.6-8.0); NEUTROPHILS % 75.4 % (40-80); PLATELET COUNT 402 tho/cmm (150-450); RED BLOOD COUNT 2.84 mil/cmm (4.00-5.20); RED CELL DISTRIBUTION WIDTH 17.3 % (12.4-16.4); WHITE BLOOD COUNT 7.5 tho/cmm (4.0-10.0)
[2016-10-14 09:31] LABS: PROTHROMBIN TIME 12.1 SECONDS (9.0-13.6)
[2016-10-16 04:52] LABS: BASO % 0.3 % (0-2); EOS % 2.6 % (0-7); EOSINOPHIL ABSOLUTE COUNT 0.2 tho/cmm (0.0-0.7); HGB-HEMOGLOBIN 7.2 gm/dl (12.0-15.5); IMMATURE GRANULOCYTES ABSOLUTE 0.02 tho/cmm (0-0.03); IMMATURE GRANULOCYTES PERCENT 0.2 % (0-0.3); LYMPH % 11.6 % (20-45); MCH (MEAN CORPUSCULAR HGB) 30.1 pg (28.0-32.0); MCV (MEAN CELL VOLUME) 94.1 fl (82.0-96.0); MEAN PLATELET VOLUME 9.6 cmc (9.4-12.4); MONOCYTE ABSOLUTE COUNT 0.5 tho/cmm (0.0-1.2); NEUTROPHIL ABSOLUTE COUNT 6.9 tho/cmm (1.6-8.0); NEUTROPHIL-AUTOMATED 6.9 tho/cmm (1.6-8.0); NEUTROPHILS % 79.3 % (40-80); PLATELET COUNT 349 tho/cmm (150-450); RED BLOOD COUNT 2.39 mil/cmm (4.00-5.20); RED CELL DISTRIBUTION WIDTH 17.8 % (12.4-16.4); WHITE BLOOD COUNT 8.7 tho/cmm (4.0-10.0)
[2016-10-16 05:09] LABS: HCT-HEMATOCRIT 22.5 % (34.0-49.0)
[2016-10-16 05:12] LABS: ALB/GLOB RATIO 1.7 (0.8-2.0); ALKALINE PHOSPHATASE 41 U/L (33-138); ALT/SGPT 14 U/L (12-78); ANION GAP 17 mmol/L (0-20); AST/SGOT 13 U/L (10-40); BILIRUBIN,TOTAL 0.5 mg/dl (0-1.5); BLOOD UREA NITROGEN 69 mg/dl (6-24); C-REACTIVE PROTEIN 10.7 mg/dl (0-0.9); CALCIUM 10.1 mg/dl (8.5-10.5); CARBON DIOXIDE-VENOUS 24 mmol/L (22-32); CHLORIDE 111 mmol/l (96-110); CREATINE PHOSPHOKINASE (CPK) 20 U/L (21-215); CREATININE 1.01 mg/dl (0.50-1.10); GLUCOSE 90 mg/dL (70-110); POTASSIUM 3.6 mmol/L (3.7-5.1); SODIUM 148 mmol/L (135-145); eGFR VALUE FOR BLACK 70 mL/Min
[2016-10-16 05:58] LABS: PROCALCITONIN 0.25 ng/ml (0.05-0.09)
[2016-10-16 06:56] LABS: PREALBUMIN 21.8 mg/dl (20.0-40.0)
[2016-10-17 05:24] LABS: BASO % 0.2 % (0-2); EOS % 1.6 % (0-7); EOSINOPHIL ABSOLUTE COUNT 0.2 tho/cmm (0.0-0.7); IMMATURE GRANULOCYTES ABSOLUTE 0.03 tho/cmm (0-0.03); IMMATURE GRANULOCYTES PERCENT 0.3 % (0-0.3); LYMPH % 5.4 % (20-45); LYMPH ABSOLUTE COUNT 0.5 tho/cmm (0.8-4.5); MCHC MEAN CORPUSCULAR HGB CONC 32.1 % (32.0-36.0); MCV (MEAN CELL VOLUME) 90.3 fl (82.0-96.0); MEAN PLATELET VOLUME 9.8 cmc (9.4-12.4); MONO % 5.4 % (0-12); MONOCYTE ABSOLUTE COUNT 0.5 tho/cmm (0.0-1.2); NEUTROPHIL ABSOLUTE COUNT 8.3 tho/cmm (1.6-8.0); NEUTROPHIL-AUTOMATED 8.3 tho/cmm (1.6-8.0); NEUTROPHILS % 87.1 % (40-80); PLATELET COUNT 335 tho/cmm (150-450); RED CELL DISTRIBUTION WIDTH 18.9 % (12.4-16.4); WHITE BLOOD COUNT 9.6 tho/cmm (4.0-10.0)
[2016-10-17 05:28] LABS: ALB/GLOB RATIO 1.4 (0.8-2.0); ALBUMIN 4.6 g/dl (3.5-5.0); ALKALINE PHOSPHATASE 55 U/L (33-138); ALT/SGPT 16 U/L (12-78); ANION GAP 13 mmol/L (0-20); AST/SGOT 15 U/L (10-40); BILIRUBIN,TOTAL 0.4 mg/dl (0-1.5); BLOOD UREA NITROGEN 46 mg/dl (6-24); CALCIUM 9.9 mg/dl (8.5-10.5); CARBON DIOXIDE-VENOUS 24 mmol/L (22-32); CHLORIDE 112 mmol/l (96-110); CREATININE 0.65 mg/dl (0.50-1.10); POTASSIUM 3.4 mmol/L (3.7-5.1); SODIUM 146 mmol/L (135-145); eGFR VALUE FOR BLACK >90 mL/Min
[2016-10-17 05:29] LABS: GLUCOSE 164 mg/dL (70-110)
[2016-10-17 16:40] LABS: BASO % 0.2 % (0-2); EOS % 0.8 % (0-7); EOSINOPHIL ABSOLUTE COUNT 0.1 tho/cmm (0.0-0.7); HCT-HEMATOCRIT 24.7 % (34.0-49.0); HGB-HEMOGLOBIN 7.9 gm/dl (12.0-15.5); IMMATURE GRANULOCYTES ABSOLUTE 0.03 tho/cmm (0-0.03); IMMATURE GRANULOCYTES PERCENT 0.3 % (0-0.3); LYMPH % 4.3 % (20-45); LYMPH ABSOLUTE COUNT 0.5 tho/cmm (0.8-4.5); MCH (MEAN CORPUSCULAR HGB) 29.3 pg (28.0-32.0); MCV (MEAN CELL VOLUME) 91.5 fl (82.0-96.0); MEAN PLATELET VOLUME 9.9 cmc (9.4-12.4); MONO % 5.1 % (0-12); MONOCYTE ABSOLUTE COUNT 0.6 tho/cmm (0.0-1.2); NEUTROPHIL ABSOLUTE COUNT 9.6 tho/cmm (1.6-8.0); NEUTROPHIL-AUTOMATED 9.6 tho/cmm (1.6-8.0); NEUTROPHILS % 89.3 % (40-80); PLATELET COUNT 314 tho/cmm (150-450); RED CELL DISTRIBUTION WIDTH 19.1 % (12.4-16.4); WHITE BLOOD COUNT 10.7 tho/cmm (4.0-10.0)
[2016-10-18 05:19] LABS: BASO % 0.2 % (0-2); EOS % 1.7 % (0-7); EOSINOPHIL ABSOLUTE COUNT 0.2 tho/cmm (0.0-0.7); HCT-HEMATOCRIT 28.7 % (34.0-49.0); HGB-HEMOGLOBIN 9.3 gm/dl (12.0-15.5); IMMATURE GRANULOCYTES ABSOLUTE 0.02 tho/cmm (0-0.03); IMMATURE GRANULOCYTES PERCENT 0.2 % (0-0.3); LYMPH % 6.9 % (20-45); LYMPH ABSOLUTE COUNT 0.6 tho/cmm (0.8-4.5); MCH (MEAN CORPUSCULAR HGB) 29.7 pg (28.0-32.0); MCHC MEAN CORPUSCULAR HGB CONC 32.4 % (32.0-36.0); MCV (MEAN CELL VOLUME) 91.7 fl (82.0-96.0); MEAN PLATELET VOLUME 9.9 cmc (9.4-12.4); MONO % 7.3 % (0-12); MONOCYTE ABSOLUTE COUNT 0.7 tho/cmm (0.0-1.2); NEUTROPHIL ABSOLUTE COUNT 7.5 tho/cmm (1.6-8.0); NEUTROPHIL-AUTOMATED 7.5 tho/cmm (1.6-8.0); NEUTROPHILS % 83.7 % (40-80); PLATELET COUNT 343 tho/cmm (150-450); RED BLOOD COUNT 3.13 mil/cmm (4.00-5.20); RED CELL DISTRIBUTION WIDTH 18.5 % (12.4-16.4)
[2016-10-18 05:37] LABS: ANION GAP 15 mmol/L (0-20); BLOOD UREA NITROGEN 38 mg/dl (6-24); C-REACTIVE PROTEIN 17.9 mg/dl (0-0.9); CALCIUM 9.4 mg/dl (8.5-10.5); CARBON DIOXIDE-VENOUS 24 mmol/L (22-32); CHLORIDE 112 mmol/l (96-110); CREATININE 0.48 mg/dl (0.50-1.10); GLUCOSE 151 mg/dL (70-110); PHOSPHOROUS 2.3 mg/dl (2.5-4.9); POTASSIUM 3.6 mmol/L (3.7-5.1); SODIUM 147 mmol/L (135-145); eGFR VALUE FOR BLACK >90 mL/Min
[2016-10-18 06:03] LABS: ESR-ERYTHROCYTE SED RATE 30 mm/hr (0-30)
[2016-10-19 05:47] LABS: BASO % 0.4 % (0-2); EOS % 2.7 % (0-7); EOSINOPHIL ABSOLUTE COUNT 0.2 tho/cmm (0.0-0.7); HCT-HEMATOCRIT 30.1 % (34.0-49.0); HGB-HEMOGLOBIN 9.5 gm/dl (12.0-15.5); IMMATURE GRANULOCYTES ABSOLUTE 0.09 tho/cmm (0-0.03); IMMATURE GRANULOCYTES PERCENT 1.1 % (0-0.3); LYMPH % 8.9 % (20-45); LYMPH ABSOLUTE COUNT 0.8 tho/cmm (0.8-4.5); MCH (MEAN CORPUSCULAR HGB) 28.6 pg (28.0-32.0); MCHC MEAN CORPUSCULAR HGB CONC 31.6 % (32.0-36.0); MCV (MEAN CELL VOLUME) 90.7 fl (82.0-96.0); MONO % 7.4 % (0-12); MONOCYTE ABSOLUTE COUNT 0.6 tho/cmm (0.0-1.2); NEUTROPHIL ABSOLUTE COUNT 6.8 tho/cmm (1.6-8.0); NEUTROPHIL-AUTOMATED 6.8 tho/cmm (1.6-8.0); NEUTROPHILS % 79.5 % (40-80); PLATELET COUNT 361 tho/cmm (150-450); RED BLOOD COUNT 3.32 mil/cmm (4.00-5.20); RED CELL DISTRIBUTION WIDTH 18.3 % (12.4-16.4); WHITE BLOOD COUNT 8.6 tho/cmm (4.0-10.0)
[2016-10-19 06:14] LABS: ANION GAP 14 mmol/L (0-20); BLOOD UREA NITROGEN 26 mg/dl (6-24); C-REACTIVE PROTEIN 17.3 mg/dl (0-0.9); CALCIUM 9.4 mg/dl (8.5-10.5); CARBON DIOXIDE-VENOUS 23 mmol/L (22-32); CHLORIDE 112 mmol/l (96-110); CREATININE 0.45 mg/dl (0.50-1.10); GLUCOSE 194 mg/dL (70-110); POTASSIUM 3.5 mmol/L (3.7-5.1); SODIUM 145 mmol/L (135-145); eGFR VALUE FOR BLACK >90 mL/Min
[2016-10-20 05:50] LABS: BASO % 0.4 % (0-2); EOS % 3.7 % (0-7); EOSINOPHIL ABSOLUTE COUNT 0.3 tho/cmm (0.0-0.7); HCT-HEMATOCRIT 28.3 % (34.0-49.0); HGB-HEMOGLOBIN 9.1 gm/dl (12.0-15.5); IMMATURE GRANULOCYTES ABSOLUTE 0.06 tho/cmm (0-0.03); IMMATURE GRANULOCYTES PERCENT 0.8 % (0-0.3); LYMPH % 12.8 % (20-45); LYMPH ABSOLUTE COUNT 0.9 tho/cmm (0.8-4.5); MCHC MEAN CORPUSCULAR HGB CONC 32.2 % (32.0-36.0); MCV (MEAN CELL VOLUME) 90.1 fl (82.0-96.0); MEAN PLATELET VOLUME 9.9 cmc (9.4-12.4); MONO % 8.6 % (0-12); MONOCYTE ABSOLUTE COUNT 0.6 tho/cmm (0.0-1.2); NEUTROPHIL ABSOLUTE COUNT 5.4 tho/cmm (1.6-8.0); NEUTROPHIL-AUTOMATED 5.4 tho/cmm (1.6-8.0); NEUTROPHILS % 73.7 % (40-80); PLATELET COUNT 435 tho/cmm (150-450); RED BLOOD COUNT 3.14 mil/cmm (4.00-5.20); RED CELL DISTRIBUTION WIDTH 17.8 % (12.4-16.4); WHITE BLOOD COUNT 7.4 tho/cmm (4.0-10.0)
[2016-10-21 04:14] LABS: BASO % 0.6 % (0-2); EOS % 3.4 % (0-7); EOSINOPHIL ABSOLUTE COUNT 0.2 tho/cmm (0.0-0.7); HCT-HEMATOCRIT 27.6 % (34.0-49.0); HGB-HEMOGLOBIN 8.7 gm/dl (12.0-15.5); IMMATURE GRANULOCYTES ABSOLUTE 0.09 tho/cmm (0-0.03); IMMATURE GRANULOCYTES PERCENT 1.3 % (0-0.3); LYMPH % 15.9 % (20-45); LYMPH ABSOLUTE COUNT 1.1 tho/cmm (0.8-4.5); MCHC MEAN CORPUSCULAR HGB CONC 31.5 % (32.0-36.0); MEAN PLATELET VOLUME 9.7 cmc (9.4-12.4); MONO % 9.8 % (0-12); MONOCYTE ABSOLUTE COUNT 0.7 tho/cmm (0.0-1.2); NEUTROPHIL ABSOLUTE COUNT 4.7 tho/cmm (1.6-8.0); NEUTROPHIL-AUTOMATED 4.7 tho/cmm (1.6-8.0); PLATELET COUNT 425 tho/cmm (150-450); RED CELL DISTRIBUTION WIDTH 17.7 % (12.4-16.4); WHITE BLOOD COUNT 6.9 tho/cmm (4.0-10.0)
[2016-10-22 04:45] LABS: ANION GAP 13 mmol/L (0-20); BLOOD UREA NITROGEN 22 mg/dl (6-24); CARBON DIOXIDE-VENOUS 26 mmol/L (22-32); CHLORIDE 107 mmol/l (96-110); CREATININE 0.36 mg/dl (0.50-1.10); GLUCOSE 127 mg/dL (70-110); POTASSIUM 3.9 mmol/L (3.7-5.1); SODIUM 142 mmol/L (135-145); eGFR VALUE FOR BLACK >90 mL/Min
[2016-10-23 07:54] LABS: BASO % 0.5 % (0-2); EOS % 4.2 % (0-7); EOSINOPHIL ABSOLUTE COUNT 0.4 tho/cmm (0.0-0.7); HCT-HEMATOCRIT 27.1 % (34.0-49.0); HGB-HEMOGLOBIN 8.5 gm/dl (12.0-15.5); IMMATURE GRANULOCYTES ABSOLUTE 0.14 tho/cmm (0-0.03); IMMATURE GRANULOCYTES PERCENT 1.7 % (0-0.3); LYMPH % 15.6 % (20-45); LYMPH ABSOLUTE COUNT 1.3 tho/cmm (0.8-4.5); MCH (MEAN CORPUSCULAR HGB) 28.9 pg (28.0-32.0); MCHC MEAN CORPUSCULAR HGB CONC 31.4 % (32.0-36.0); MCV (MEAN CELL VOLUME) 92.2 fl (82.0-96.0); MEAN PLATELET VOLUME 9.9 cmc (9.4-12.4); MONO % 10.5 % (0-12); MONOCYTE ABSOLUTE COUNT 0.9 tho/cmm (0.0-1.2); NEUTROPHIL ABSOLUTE COUNT 5.7 tho/cmm (1.6-8.0); NEUTROPHIL-AUTOMATED 5.7 tho/cmm (1.6-8.0); NEUTROPHILS % 67.5 % (40-80); PLATELET COUNT 458 tho/cmm (150-450); RED BLOOD COUNT 2.94 mil/cmm (4.00-5.20); RED CELL DISTRIBUTION WIDTH 17.4 % (12.4-16.4); WHITE BLOOD COUNT 8.4 tho/cmm (4.0-10.0)
[2016-10-23 08:04] LABS: ANION GAP 13 mmol/L (0-20); BLOOD UREA NITROGEN 22 mg/dl (6-24); C-REACTIVE PROTEIN 6.9 mg/dl (0-0.9); CALCIUM 9.3 mg/dl (8.5-10.5); CARBON DIOXIDE-VENOUS 26 mmol/L (22-32); CHLORIDE 103 mmol/l (96-110); CREATININE 0.36 mg/dl (0.50-1.10); GLUCOSE 87 mg/dL (70-110); POTASSIUM 3.9 mmol/L (3.7-5.1); SODIUM 138 mmol/L (135-145); eGFR VALUE FOR BLACK >90 mL/Min
[2016-10-24 05:54] LABS: BASO % 0.2 % (0-2); EOSINOPHIL ABSOLUTE COUNT 0.3 tho/cmm (0.0-0.7); HCT-HEMATOCRIT 26.3 % (34.0-49.0); HGB-HEMOGLOBIN 8.3 gm/dl (12.0-15.5); IMMATURE GRANULOCYTES PERCENT 1.2 % (0-0.3); LYMPH % 15.7 % (20-45); LYMPH ABSOLUTE COUNT 1.3 tho/cmm (0.8-4.5); MCH (MEAN CORPUSCULAR HGB) 28.6 pg (28.0-32.0); MCHC MEAN CORPUSCULAR HGB CONC 31.6 % (32.0-36.0); MCV (MEAN CELL VOLUME) 90.7 fl (82.0-96.0); MEAN PLATELET VOLUME 9.6 cmc (9.4-12.4); MONO % 7.6 % (0-12); MONOCYTE ABSOLUTE COUNT 0.6 tho/cmm (0.0-1.2); NEUTROPHIL ABSOLUTE COUNT 5.9 tho/cmm (1.6-8.0); NEUTROPHIL-AUTOMATED 5.9 tho/cmm (1.6-8.0); NEUTROPHILS % 71.3 % (40-80); PLATELET COUNT 341 tho/cmm (150-450); RED CELL DISTRIBUTION WIDTH 16.8 % (12.4-16.4); WHITE BLOOD COUNT 8.3 tho/cmm (4.0-10.0)
[2016-10-24 06:07] LABS: ANION GAP 13 mmol/L (0-20); BLOOD UREA NITROGEN 21 mg/dl (6-24); CALCIUM 8.9 mg/dl (8.5-10.5); CARBON DIOXIDE-VENOUS 26 mmol/L (22-32); CHLORIDE 104 mmol/l (96-110); CREATININE 0.41 mg/dl (0.50-1.10); GLUCOSE 121 mg/dL (70-110); POTASSIUM 4.2 mmol/L (3.7-5.1); SODIUM 139 mmol/L (135-145); eGFR VALUE FOR BLACK >90 mL/Min
[2016-10-26 05:07] LABS: BASO % 0.4 % (0-2); EOS % 4.8 % (0-7); EOSINOPHIL ABSOLUTE COUNT 0.5 tho/cmm (0.0-0.7); HCT-HEMATOCRIT 30.1 % (34.0-49.0); HGB-HEMOGLOBIN 9.5 gm/dl (12.0-15.5); IMMATURE GRANULOCYTES ABSOLUTE 0.14 tho/cmm (0-0.03); IMMATURE GRANULOCYTES PERCENT 1.5 % (0-0.3); LYMPH % 13.9 % (20-45); LYMPH ABSOLUTE COUNT 1.3 tho/cmm (0.8-4.5); MCH (MEAN CORPUSCULAR HGB) 28.9 pg (28.0-32.0); MCHC MEAN CORPUSCULAR HGB CONC 31.6 % (32.0-36.0); MCV (MEAN CELL VOLUME) 91.5 fl (82.0-96.0); MEAN PLATELET VOLUME 9.6 cmc (9.4-12.4); MONO % 5.7 % (0-12); MONOCYTE ABSOLUTE COUNT 0.5 tho/cmm (0.0-1.2); NEUTROPHILS % 73.7 % (40-80); PLATELET COUNT 427 tho/cmm (150-450); RED BLOOD COUNT 3.29 mil/cmm (4.00-5.20); RED CELL DISTRIBUTION WIDTH 16.1 % (12.4-16.4); WHITE BLOOD COUNT 9.5 tho/cmm (4.0-10.0)
[2016-10-26 05:18] LABS: ALB/GLOB RATIO 0.8 (0.8-2.0); ALBUMIN 3.2 g/dl (3.5-5.0); ALKALINE PHOSPHATASE 88 U/L (33-138); ALT/SGPT 33 U/L (12-78); ANION GAP 14 mmol/L (0-20); AST/SGOT 27 U/L (10-40); BILIRUBIN,TOTAL 0.3 mg/dl (0-1.5); BLOOD UREA NITROGEN 17 mg/dl (6-24); C-REACTIVE PROTEIN 6.1 mg/dl (0-0.9); CALCIUM 9.4 mg/dl (8.5-10.5); CARBON DIOXIDE-VENOUS 27 mmol/L (22-32); CHLORIDE 99 mmol/l (96-110); CREATINE PHOSPHOKINASE (CPK) 21 U/L (21-215); CREATININE 0.42 mg/dl (0.50-1.10); POTASSIUM 3.9 mmol/L (3.7-5.1); SODIUM 136 mmol/L (135-145); eGFR VALUE FOR BLACK >90 mL/Min
[2016-10-26 05:20] LABS: GLUCOSE 183 mg/dL (70-110)
[2016-10-28 04:54] LABS: BASO % 0.3 % (0-2); EOSINOPHIL ABSOLUTE COUNT 0.4 tho/cmm (0.0-0.7); HCT-HEMATOCRIT 28.8 % (34.0-49.0); HGB-HEMOGLOBIN 9.2 gm/dl (12.0-15.5); IMMATURE GRANULOCYTES ABSOLUTE 0.08 tho/cmm (0-0.03); IMMATURE GRANULOCYTES PERCENT 0.8 % (0-0.3); LYMPH % 12.1 % (20-45); LYMPH ABSOLUTE COUNT 1.2 tho/cmm (0.8-4.5); MCH (MEAN CORPUSCULAR HGB) 29.1 pg (28.0-32.0); MCHC MEAN CORPUSCULAR HGB CONC 31.9 % (32.0-36.0); MCV (MEAN CELL VOLUME) 91.1 fl (82.0-96.0); MEAN PLATELET VOLUME 9.6 cmc (9.4-12.4); MONO % 5.4 % (0-12); MONOCYTE ABSOLUTE COUNT 0.5 tho/cmm (0.0-1.2); NEUTROPHIL ABSOLUTE COUNT 7.4 tho/cmm (1.6-8.0); NEUTROPHIL-AUTOMATED 7.4 tho/cmm (1.6-8.0); NEUTROPHILS % 77.4 % (40-80); PLATELET COUNT 392 tho/cmm (150-450); RED BLOOD COUNT 3.16 mil/cmm (4.00-5.20); RED CELL DISTRIBUTION WIDTH 15.6 % (12.4-16.4); WHITE BLOOD COUNT 9.5 tho/cmm (4.0-10.0)
[2016-10-28 05:07] LABS: C-REACTIVE PROTEIN 3.2 mg/dl (0-0.9)
[2016-10-28 06:11] LABS: PROCALCITONIN 0.14 ng/ml (0.05-0.09)
[2016-10-29] MEDS ORDERED: HYDRALAZINE HCL25 M1 PO (15:22)
[2016-10-29] MEDS ORDERED: NORCO 5-325 TA1 EACH PO (15:37)
[2016-10-29] MEDS ORDERED: HYDROCORTISO453.6 G4 TP (15:51)
[2016-10-29] MEDS ORDERED: ATIVAN0.5 M1 PEG (15:52)
== END 2016-10-29 15:30 | DRG 573 ==
LOC: SRG 08:55 → BURN 08:58 → ORW 10-16 07:31 → BURN 10-16 09:11 → ORW 10-23 07:40 → BURN 10-23 09:42
PROVIDERS: Internal Medicine; Internal Medicine Infectious Disease; Physician Assistant; Physician Assistant Surgical; Psychiatry & Neurology Neurology; Radiology Diagnostic Radiology; Registered Nurse; Surgery; ADMIT Surgery
PROC: 0BC78ZZ Extirpation of Matter from Left Main Bronchus, Via Natural or Artificial Opening Endoscopic (ICD-10-PCS; principal; 2016-09-26)
PROC: 0QB10ZZ Excision of Sacrum, Open Approach (ICD-10-PCS; 2016-09-26)
PROC: 0BC38ZZ Extirpation of Matter from Right Main Bronchus, Via Natural or Artificial Opening Endoscopic (ICD-10-PCS; 2016-09-26)
PROC: 02HV33Z Insertion of Infusion Device into Superior Vena Cava, Percutaneous Approach (ICD-10-PCS; 2016-09-26)
PROC: 30233N1 Transfusion of Nonautologous Red Blood Cells into Peripheral Vein, Percutaneous Approach (ICD-10-PCS; 2016-09-27)
PROC: 0BJ08ZZ Inspection of Tracheobronchial Tree, Via Natural or Artificial Opening Endoscopic (ICD-10-PCS; 2016-10-03)
PROC: 0JX70ZC Transfer Back Subcutaneous Tissue and Fascia with Skin, Subcutaneous Tissue and Fascia, Open Approach (ICD-10-PCS; 2016-10-04)
PROC: 0QB10ZZ Excision of Sacrum, Open Approach (ICD-10-PCS; 2016-10-04)
PROC: 0BJ08ZZ Inspection of Tracheobronchial Tree, Via Natural or Artificial Opening Endoscopic (ICD-10-PCS; 2016-10-04)
PROC: 0JB70ZZ Excision of Back Subcutaneous Tissue and Fascia, Open Approach (ICD-10-PCS; 2016-10-09)
PROC: 0JC90ZZ Extirpation of Matter from Buttock Subcutaneous Tissue and Fascia, Open Approach (ICD-10-PCS; 2016-10-09)
PROC: 0QB10ZZ Excision of Sacrum, Open Approach (ICD-10-PCS; 2016-10-16)
PROC: 0BJ08ZZ Inspection of Tracheobronchial Tree, Via Natural or Artificial Opening Endoscopic (ICD-10-PCS; 2016-10-16)
PROC: 0JC90ZZ Extirpation of Matter from Buttock Subcutaneous Tissue and Fascia, Open Approach (ICD-10-PCS; 2016-10-16)
PROC: 0B21XFZ Change Tracheostomy Device in Trachea, External Approach (ICD-10-PCS; 2016-10-16)
PROC: 0W3L0ZZ Control Bleeding in Lower Back, Open Approach (ICD-10-PCS; 2016-10-17)
PROC: 0JX70ZC Transfer Back Subcutaneous Tissue and Fascia with Skin, Subcutaneous Tissue and Fascia, Open Approach (ICD-10-PCS; 2016-10-23)
DX: L89.154 Pressure ulcer of sacral region, stage 4 (principal); J96.20 Acute and chronic respiratory failure, unspecified whether with hypoxia or hypercapnia; G93.49 Other encephalopathy; G82.50 Quadriplegia, unspecified; Z93.0 Tracheostomy status; E46 Unspecified protein-calorie malnutrition; K59.2 Neurogenic bowel, not elsewhere classified; Q85.01 Neurofibromatosis, type 1; L76.32 Postprocedural hematoma of skin and subcutaneous tissue following other procedure; T86.821 Skin graft (allograft) (autograft) failure; L76.22 Postprocedural hemorrhage of skin and subcutaneous tissue following other procedure; Z51.5 Encounter for palliative care; I10 Essential (primary) hypertension; G40.909 Epilepsy, unspecified, not intractable, without status epilepticus; E03.9 Hypothyroidism, unspecified; F41.9 Anxiety disorder, unspecified; E11.65 Type 2 diabetes mellitus with hyperglycemia; N31.9 Neuromuscular dysfunction of bladder, unspecified; E78.5 Hyperlipidemia, unspecified; L40.9 Psoriasis, unspecified; Z68.29 Body mass index [BMI] 29.0-29.9, adult; Z99.3 Dependence on wheelchair; Z93.1 Gastrostomy status; Z93.3 Colostomy status; Z86.718 Personal history of other venous thrombosis and embolism; Z88.5 Allergy status to narcotic agent; Z88.8 Allergy status to other drugs, medicaments and biological substances; Y83.8 Other surgical procedures as the cause of abnormal reaction of the patient, or of later complication, without mention of misadventure at the time of the procedure; Y92.239 Unspecified place in hospital as the place of occurrence of the external cause
CPT/HCPCS: C1751; C9113; G8978-GP-CN; G8979-GP-CN; G8980-GP-CN; G9162-GN-CM; G9163-GN-CL; J0133; J0171; J0360; J0878; J1650; J1815; J2250; J2543; J3010; J3260; J3370; J3480; J7030; J7040; J7050; J7999; P9016; P9045; P9047; Q9967